=== PATIENT | male | born 2000 | race Caucasian/White ===

== ENCOUNTER 2019-01-24 05:04 | Emergency (ER) | payer BC ==
[2019-01-24 05:33] LABS: #Basophils 0.1 thou/uL (0.0-0.2); #Eosinphils 0.1 thou/uL (0.0-0.7); #Lymphocytes 1.5 thou/uL (1.20-3.40); #Monocytes 0.4 thou/uL (0.11-0.59); #Neutrophils 5.4 thou/uL (1.40-6.50); %Basophils 0.7 % (0.0-1.0); %Lymphocytes 20.8 % (28.0-48.0); %Monocytes 5.1 % (0.0-4.0); %Neutrophils 72.4 % (31.0-61.0); Hemoglobin 15.7 g/dL (14.0-18.0); Mean Corpuscular HGB CONC 34.1 g/dL (32.0-36.0); Mean Corpuscular Hemoglobin 30.5 pg (25.0-35.0); Mean Corpuscular Volume 89.6 fL (78.0-98.0); Mean Platelet Volume 6.6 fL (7.4-10.4); Platelet Count 243 thou/uL (130-400); RBC Distribution Width 12.4 % (11.5-14.5); Red Blood Cell (RBC) Count 5.14 mill/uL (4.00-5.20); White Blood Cell (WBC) Count 7.4 thou/uL (4.8-10.8)
[2019-01-24 05:58] LABS: ALT (SGPT) 16 U/L (8-55); AST (SGOT) 13 U/L (10-45); Albumin 4.6 g/dL (3.5-5.0); Alcohol 159 mg/dL (Less than 10); Alkaline Phosphatase 96 U/L (Less than 750); Anion Gap 14 mmol/L (10-20); BUN (Urea Nitrogen) 11 mg/dL (8.4-21.0); Bilirubin, Total 0.3 mg/dL (0.2-1.2); Calc. Creatinine Clearance 0 mL/min (70-130); Calcium 9.1 mg/dL (7.8-10.44); Carbon Dioxide 24 mmol/L (22-29); Chloride 106 mmol/L (98-107); Estimated GFR-MDRD Greater than 90; Globulin 2.1 g/dL (2.4-3.5); Glucose 104 mg/dL (70-105); Lipase Less than 4 U/L (8-78); Potassium 3.6 mmol/L (3.5-5.1); Protein, Total 6.7 g/dL (6.0-8.3); Sodium 140 mmol/L (136-145)
== END 2019-01-24 06:14 | disposition home or self-care (01) ==
LOC: ERS 05:04
DX: F10.129 Alcohol abuse with intoxication, unspecified (principal); R10.31 Right lower quadrant pain; F17.210 Nicotine dependence, cigarettes, uncomplicated
CPT/HCPCS: 36415; 80053; 80307; 83690; 85025; 96360